=== PATIENT | male | born 1970 | race Caucasian/White ===

== ENCOUNTER 2019-08-30 07:53 | Emergency (ER) | payer OTHER ==
--- NOTE | 2019-08-30 08:16 | ED ---
Psychiatric Complaint - HPI Summary HPI Summary: Patient is a 49 y/o M presenting to the ED by EMS and escorted by police from [place]. Per EMS, patient attempted to commit suicide by strangulation, around 06:30 on 08/30/19. Patient was found attempting to strangle himself using his weight, after which the patient was released and later had 2 seizures. He was given 1 mg of Ativan. On route to [facility] by EMS, patient had an additional seizure. Currently, patient denies any myalgia, including neck pain. Patient has a ligature william around the neck. No aggravating or alleviating factors are reported. PMHx is significant for seizure disorder. His last seizure prior to the one of 08/30/19 was in April 2019. Patient takes omeprazole, Seroquel, risperidone, Trazodone, Remeron, and Keppra which he last took on the night of 08/29/19. - History Of Current Complaint Time Seen by Provider: 08/30/19 07:59 Hx Obtained From: Patient, EMS Onset/Duration: Sudden Onset, Resolved Timing: Constant Severity Initially: Severe Severity Currently: Moderate Aggravating Factor(s): Nothing Alleviating Factor(s): Nothing Associated Signs And Symptoms: Positive: Negative Has Suicidal: Reports: Thoughts - Allergies/Home Medications Allergies/Adverse Reactions: Allergies Allergy/AdvReac Type Severity Reaction Status Date / Time aspirin Allergy Unknown Verified 08/30/19 09:10 Reaction Details haloperidol [From Haldol] Allergy Unknown Verified 08/30/19 09:10 Reaction Details Penicillins Allergy Unknown Verified 08/30/19 08:27 Reaction Details Phenothiazines Allergy Unknown Verified 08/30/19 08:27 Reaction Details Home Medications: Home Medications Albuterol HFA INHALER* [Ventolin HFA Inhaler*] 2 puff INH Q6H PRN 08/30/19 [ History Confirmed 08/30/19] Fluticas/Salmet 230/21 HFA(NF) [Advair HFA 23O/21 (NF)] 1 puff INH BID 08/30/19 [History Confirmed 08/30/19] Levetiracetam XR TAB(NF) [Keppra XR (NF)] 750 mg PO BID 08/30/19 [History Confirmed 08/30/19] Levothyroxine TAB* [Synthroid TAB*] 75 mcg PO DAILY 08/30/19 [History Confirmed 08/30/19] Naproxen [Naprosyn 500 mg tab] 500 mg PO BID PRN 08/30/19 [History Confirmed ] Omeprazole CAP (NF) [Prilosec CAP* 20 MG] 20 mg PO DAILY 08/30/19 [History Confirmed 08/30/19] PMH/Surg Hx/FS Hx/Imm Hx Previously Healthy: Yes GI History: Reports: Hx Gastroesophageal Reflux Disease Sensory History: Denies: Hx Legally Blind, Hx Deafness Opthamlomology History: Denies: Hx Legally Blind EENT History: Denies: Hx Deafness Neurological History: Reports: Hx Seizures Psychiatric History: Reports: Hx Depression - Surgical History Surgical History: None Surgery Procedure, Year, and Place: None Infectious Disease History: No Infectious Disease History: Denies: Traveled Outside the [place] in Last 30 Days - Family History Known Family History: Negative: Diabetes Family History: Not obtainable - patient uncooperative - Social History Occupation: Unemployed Alcohol Use: None Alcohol Amount: SHx unknown - patient uncooperative Hx Substance Use: No Substance Use Type: Reports: None Hx Tobacco Use: No Smoking Status (MU): Smoker, Current Status Unknown Review of Systems Negative: Myalgia - Negative, including negative neck pain Positive: Other - Positive ligature william around the neck All Other Systems Reviewed And Are Negative: Yes Physical Exam - Summary Physical Exam Summary: Appearance: The patient is well-nourished in no acute distress and in no acute pain. Skin: The skin is warm and dry, and skin color reflects adequate perfusion. HEENT: The head is normocephalic and atraumatic. The pupils are equal and reactive. The conjunctivae are clear and without drainage. Nares are patent and without drainage. Mouth reveals moist mucous membranes, and the throat is without erythema and exudate. The external ears are intact. The ear canals are patent and without drainage. The tympanic membranes are intact. Poor dentition. Neck: The neck is supple with full range of motion and non-tender. There are no carotid bruits. There is no neck vein distension. Ligature olguin around the neck. Respiratory: Chest is non-tender. Lungs are clear to auscultation and breath sounds are symmetrical and equal. Cardiovascular: Heart is regular rate and rhythm. There is no murmur or rub auscultated. There is no peripheral edema and pulses are symmetrical and equal. Abdomen: The abdomen is soft and non-tender. There are normal bowel sounds heard in all four quadrants and there is no organomegaly palpated. Musculoskeletal: There is no back tenderness noted. Extremities are non-tender with full range of motion. There is good capillary refill. There is no peripheral edema or calf tenderness elicited. Neurological: Patient is alert and oriented to person, place and time. The patient has symmetrical motor strength in all four extremities. Cranial nerves are grossly intact. Deep tendon reflexes are symmetrical and equal in all four extremities. Psychiatric: The patient has an appropriate affect and does not exhibit any anxiety or depression. Triage Information Reviewed: Yes Vital Signs On Initial Exam: Initial Vitals Temp Pulse Resp BP Pulse Ox 98.4 F 84 20 124/77 90 08/30/19 07:55 08/30/19 07:55 08/30/19 07:55 08/30/19 07:55 08/30/19 07:55 Vital Signs Reviewed: Yes Procedures - Sedation Patient Received Moderate/Deep Sedation with Procedure: No Diagnostics - Vital Signs Vital Signs Temp Pulse Resp BP Pulse Ox 08/30/19 07:55 98.4 F 84 20 124/77 90 - Laboratory Result Diagrams: 08/30/19 08:16 08/30/19 08:16 Lab Statement: Any lab studies that have been ordered have been reviewed, and results considered in the medical decision making process. - CT Cervical Spine CT CT Interpretation Completed By: Radiologist Summary of CT Findings: Cervical Spine CT IMPRESSION: 1. No fracture or acute injury identified on CTs of the neck are C-spine. 2. Old right posterior maxillary sinus wall fracture. 3. Varying degrees of spondylosis results in moderate spinal canal stenosis at C5-C6 and multilevel neural foraminal stenosis as above. 4. Scattered untreated dental and periodontal disease. Reviewed by Dr. Edwards. Neck CT CT Interpretation Completed By: Radiologist Summary of CT Findings: Neck CT IMPRESSION: 1. No fracture or acute injury identified on CTs of the neck are C-spine. 2. Old right posterior maxillary sinus wall fracture. 3. Varying degrees of spondylosis results in moderate spinal canal stenosis at C5-C6 and multilevel neural foraminal stenosis as above. 4. Scattered untreated dental and periodontal disease. Reviewed by Dr. Edwards. Re-Evaluation - Re-Evaluation First Eval Re-Evaluation Time: 08:15 Change: Unchanged Comment: At 08:15, patient is medically cleared for a mental health evaluation. Course/Dx - Course Course Of Treatment: Mr. Lazaro had no further seizure activity here. His white blood cell count was normal as were the rest of his labs. Evaluation by CT of his neck revealed no acute pathology. I recommended discharge back to the institution on suicide precautions. - Differential Dx/Clinical Impression Provider Diagnosis: Suicide attempt by hanging - Physician Notifications Discussed Care Of Patient With: Pro Selby - At 09:00, Dr. Pro Selby states that patient cannot be admitted due to him being at [place]. Time Discussed With Above Provider: 09:00 Discharge ED - Sign-Out/Discharge Documenting (check all that apply): Patient Departure - Discharge - Discharge Plan Condition: Stable Disposition: HOME Patient Education Materials: Suicide Prevention (ED) Referrals: Care [facility] [Outside] Additional Instructions: RETURN TO THE EMERGENCY DEPARTMENT FOR CHANGING OR WORSENING SYMPTOMS. Follow up with your primary care physician in 2-3 days. - Billing Disposition and Condition Condition: STABLE Disposition: Home - Attestation Statements Document Initiated by Scribe: Yes Documenting Scribe: Preethi Ferrell Provider For Whom Scribe is Documenting (Include Credential): Dawit Edwards MD Scribe Attestation: IPreethi, scribed for Dawit Edwards MD on 08/30/19 at 1123. Scribe Documentation Reviewed: Yes Provider Attestation: The documentation as recorded by the Preethi milner accurately reflects the service I personally performed and the decisions made by me, Dawit Edwards MD Status of Scribe Document: Viewed
[2019-08-30 08:26] LABS: ABS Basophils 0.1 10^3/ul (0-0.2); ABS Eosinophils 0.1 10^3/ul (0-0.6); ABS Lymphocytes 1.6 10^3/ul (1.0-4.8); ABS Monocytes 0.5 10^3/ul (0-0.8); ABS Neutrophils 7.1 10^3/ul (1.5-7.7); Eosinophil % 1.2 %; Hematocrit 43 % (42-52); Hemoglobin 14.9 g/dL (14.0-18.0); Lymphocyte % 16.7 %; Mean Corpuscular HGB Conc 35 g/dL (31-36); Mean Corpuscular Hemoglobin 29 pg (27-31); Mean Corpuscular Volume 84 fL (80-94); Platelet Count 198 10^3/uL (150-450); Red Blood Count 5.09 10^6 /uL (4.18-5.48); Red Cell Distribution Width 14 % (10-15); White Blood Count 9.3 10^3/uL (3.5-10.8)
[2019-08-30 08:47] LABS: ALT 26 U/L (7-52); AST 27 U/L (13-39); Albumin 4.4 g/dL (3.2-5.2); Albumin/Globulin Ratio 1.7 (1-3); Alkaline Phosphatase 103 U/L (34-104); Anion Gap 7 mmol/L (2-11); BUN/Creatinine Ratio 21.3 (8-20); Blood Urea Nitrogen 16 mg/dL (6-24); CO2 Carbon Dioxide 25 mmol/L (22-32); Calcium 9.6 mg/dL (8.6-10.3); Chloride 106 mmol/L (101-111); EGFR African American 132.9 (>60); EGFR Non-African American 109.8 (>60); Globulin 2.6 g/dL (2-4); Glucose 89 mg/dL (70-100); Potassium 3.8 mmol/L (3.5-5.0); Sodium 138 mmol/L (135-145)
[2019-08-30] MEDS ORDERED: Iohexol 300* (CONTRAST) 10 ML SDV IV ONE (08:53)
[2019-08-30 09:16] LABS: Acetaminophen < 15 mcg/mL; Alcohol < 10 mg/dL (<10); Salicylate < 2.50 mg/dL (<30)
[2019-08-30 09:31] LABS: TSH (Thyroid Stimulating Horm) 7.54 mcIU/mL (0.34-5.60)
[2019-08-30 10:52] VITALS: BP 129/90
== END 2019-08-30 10:54 | disposition home or self-care (01) ==
LOC: ED 07:53
DX: T14.91XA Suicide attempt, initial encounter (principal); G40.909 Epilepsy, unspecified, not intractable, without status epilepticus; K21.9 Gastro-esophageal reflux disease without esophagitis; X83.8XXA Intentional self-harm by other specified means, initial encounter; Y92.149 Unspecified place in prison as the place of occurrence of the external cause; F32.9 Major depressive disorder, single episode, unspecified; Z79.899 Other long term (current) drug therapy; Z79.890 Hormone replacement therapy; Z88.6 Allergy status to analgesic agent; Z88.8 Allergy status to other drugs, medicaments and biological substances; Z88.0 Allergy status to penicillin; Z72.0 Tobacco use
CPT/HCPCS: 36415; 70491; 72125; 80053; 80320; 80329; 84443; 85025; 99285; G0480; Q9967